=== PATIENT | male | born 1935 | race African-American/Black ===

== ENCOUNTER 2016-12-10 02:57 | Emergency (ER) | payer OTHER, MEDICARE ==
[~2016-12-10] VITALS: Ht 170.2 cm; Wt 70.0 kg
[~2016-12-10 02:57] MED LIST: AMLO10TA80; ASPI-986 PO; CARV12.545 PO; CLON0.2T; ECOTRIN; IRBE1TAB13 PO; LOVA40TA73; METF10002; PROT40 PO
[2016-12-10 04:22] LABS: BASOPHILS % 0.5 % (0.0-2.0); EOSINOPHILS % 3.5 % (0.0-5.0); HEMOGLOBIN. 11.3 g/dL (14.0-18.0); LYMPHOCYTES % 30.7 % (20.0-50.0); MEAN CORPUSCULAR HEMOGLOBIN 26.2 pg (28.0-32.0); MEAN CORPUSCULAR VOLUME 78.5 fL (80.0-94.0); MEAN PLATELET VOLUME 7.8 fl (7.4-10.4); NEUTROPHILS % 56.3 % (40.0-76.0); PLATELET 222 x1000/uL (130-400); RED BLOOD CELL COUNT 4.33 mill/uL (4.7-6.1); RED CELL DISTRIBUTION WIDTH 16.1 % (11.6-14.6)
[2016-12-10 04:25] LABS: INR 1.1; PROTHROMBIN TIME 11.4 sec
[2016-12-10 04:35] LABS: CARBON DIOXIDE 25 mEq/L (21-32); CHLORIDE 105 mEq/L (98-107); TROPONIN I < 0.02 ng/mL (0.00-0.04)
[2016-12-10 05:40] VITALS: BP 138/78
== END 2016-12-10 08:40 | disposition home or self-care (01) ==
LOC: ER 08:36
DX: R60.0 Localized edema (principal); I10 Essential (primary) hypertension; E11.9 Type 2 diabetes mellitus without complications; E89.0 Postprocedural hypothyroidism; Z86.718 Personal history of other venous thrombosis and embolism; Z79.01 Long term (current) use of anticoagulants
CPT/HCPCS: 36415; 71010; 80053; 83880; 84484; 85025; 85610; 93005; 93970; 99285

== ENCOUNTER 2019-04-14 07:43 | Emergency (ER) | payer MEDICARE, OTHER ==
[~2019-04-14] VITALS: Ht 165.1 cm; Wt 77.0 kg
[~2019-04-14 07:43] MED LIST changes: +METF-416; -METF10002
[2019-04-14 11:25] LABS: BASOPHILS % 1.2 % (0.0-2.0); HEMATOCRIT. 33.9 % (42.0-52.0); HEMOGLOBIN. 11.4 g/dL (14.0-18.0); LYMPHOCYTES % 24.6 % (20.0-50.0); MEAN CORPUSCULAR HEMOGLOBIN 26.6 pg (28.0-32.0); MEAN CORPUSCULAR VOLUME 78.9 fL (80.0-94.0); MEAN PLATELET VOLUME 7.3 fl (7.4-10.4); NEUTROPHILS % 63.2 % (40.0-76.0); PLATELET 385 x1000/uL (130-400); RED BLOOD CELL COUNT 4.29 mill/uL (4.7-6.1); RED CELL DISTRIBUTION WIDTH 15.2 % (11.6-14.6)
[2019-04-14 11:29] LABS: CHLORIDE 101 mEq/L (98-107)
[2019-04-14 11:30] LABS: INR 1.1; PROTHROMBIN TIME 11.3 sec (9.6-11.0)
[2019-04-14 12:49] LABS: CLARITY URINE CLEAR (CLEAR); COLOR URINE YELLOW (YELLOW); KETONES URINE NEGATIVE (NEGATIVE); LEUKOCYTE ESTERASE URINE NEGATIVE (NEGATIVE); NITRITE URINE NEGATIVE (NEGATIVE); OCCULT BLOOD URINE NEGATIVE (NEGATIVE); PH URINE 7.5 (4.5-8.0); PROTEIN URINE NEGATIVE (NEGATIVE); UROBILINOGEN URINE 0.2 E.U./dL (0.2-1.0)
[2019-04-14 13:46] VITALS: BP 127/68
== END 2019-04-14 13:49 | disposition home or self-care (01) ==
LOC: ER 07:43 → CANBEDREQ 04-15 00:07
DX: R53.1 Weakness (principal); I10 Essential (primary) hypertension; E11.9 Type 2 diabetes mellitus without complications; E78.00 Pure hypercholesterolemia, unspecified; N40.0 Benign prostatic hyperplasia without lower urinary tract symptoms; G62.9 Polyneuropathy, unspecified; M10.9 Gout, unspecified; Z79.82 Long term (current) use of aspirin; Z79.84 Long term (current) use of oral hypoglycemic drugs
CPT/HCPCS: 36415; 71045; 81003; 83605; 84145; 84484; 87804; 93005; 99284

== ENCOUNTER 2020-03-10 20:41 | Inpatient (IN) | payer OTHER ==
[~2020-03-10] VITALS: Ht 172.7 cm; Wt 80.1 kg
[2020-03-10 21:59] LABS: BASOPHILS % 0.5 % (0.0-2.0); EOSINOPHILS % 2.4 % (0.0-5.0); HEMATOCRIT. 33.5 % (42.0-52.0); HEMOGLOBIN. 11.3 g/dL (14.0-18.0); LYMPHOCYTES % 36.9 % (20.0-50.0); MEAN CORPUSCULAR HEMOGLOBIN 27.3 pg (28.0-32.0); MEAN CORPUSCULAR VOLUME 80.8 fL (80.0-94.0); MEAN PLATELET VOLUME 7.5 fl (7.4-10.4); MONOCYTES % 9.4 % (2.0-8.0); NEUTROPHILS % 50.8 % (40.0-76.0); PLATELET 214 x1000/uL (130-400); RED BLOOD CELL COUNT 4.14 mill/uL (4.7-6.1); RED CELL DISTRIBUTION WIDTH 15.6 % (11.6-14.6)
[2020-03-10 22:00] LABS: CHLORIDE 109 mEq/L (98-107)
[2020-03-10] MEDS ORDERED: SODIUM CHLORIDE 0.9% 500 ML IV ONE (22:00)
[2020-03-11] VITALS (9 sets, daily range): BP systolic 118–150; BP diastolic 53–79
[2020-03-11 00:20] LABS: CLARITY URINE CLEAR (CLEAR); COLOR URINE YELLOW (YELLOW); KETONES URINE NEGATIVE (NEGATIVE); LEUKOCYTE ESTERASE URINE NEGATIVE (NEGATIVE); NITRITE URINE NEGATIVE (NEGATIVE); OCCULT BLOOD URINE NEGATIVE (NEGATIVE); PH URINE 6.5 (4.5-8.0); PROTEIN URINE NEGATIVE (NEGATIVE); SPECIFIC GRAVITY URINE 1.014 (1.005-1.030)
[2020-03-11] MEDS ORDERED: DOCUSATE SODIUM 100MG CAPSULE PO PRN (07:30)
[2020-03-11] MEDS ORDERED: ACETAMINOPHEN 325MG TABLET PO PRN (07:30)
[2020-03-11] MEDS: CARVEDILOL 12.5MG TABLET PO SCH ×2 (07:50→08:54)
[2020-03-11] MEDS ORDERED: DEXTROSE 50% WATER 50ML SYRINGE IV PRN (08:15)
[2020-03-11] MEDS: ASPIRIN 325MG TABLET PO SCH (08:53)
[2020-03-11] MEDS: PANTOPRAZOLE 40MG DR TABLET PO SCH (08:54)
[2020-03-11] MEDS: LOSARTAN POTASSIUM 100 MG TABLET PO SCH (08:54)
[2020-03-11] MEDS: ENOXAPARIN 40MG/0.4ML SYR SUBCUT SCH (09:02)
[2020-03-11] MEDS: AMLODIPINE 10MG TABLET PO SCH (09:02)
[2020-03-11] MEDS ORDERED: METF-414 MT (09:32)
[2020-03-11] MEDS ORDERED: TAMS-11 PO (09:33)
[2020-03-11] MEDS ORDERED: COR25 PO (09:34)
[2020-03-11] MEDS ORDERED: ATOR40TA70 MT (09:34)
[2020-03-11] MEDS ORDERED: CLON0.1T PO (09:35)
[2020-03-11] MEDS: BLOOD SUGAR DIAGNOSTIC STRIP TEST SCH ×3 (12:20→20:51)
[2020-03-11] MEDS: INSULIN LISPRO 100 UNITS/ML SUBCUT SCH ×3 (12:50→20:51)
[2020-03-11] MEDS: DEXT 5%/0.45% NACL 1000ML 1,000 ML IV SCH (14:08)
[2020-03-11] MEDS: SODIUM CHLORIDE 0.9% INJ 3ML FLUSH IVF SCH ×2 (14:10→20:55)
[2020-03-11 16:51] LABS: LDL CHOLESTEROL 60 mg/dL (5-100)
[2020-03-11 16:52] LABS: HDL CHOLESTEROL 54 mg/dL (40-59)
[2020-03-11 16:53] LABS: T4 FREE 1.18 ng/dL (0.76-1.46)
[2020-03-11] MEDS ORDERED: ATORVASTATIN CALCIUM 20MG TABLET PO SCH (21:00)
[2020-03-12] VITALS: BP 136/62
[2020-03-12 04:21] VITALS: BP 121/53
[2020-03-12 05:35] LABS: CHLORIDE 108 mEq/L (98-107)
[2020-03-12] MEDS: SODIUM CHLORIDE 0.9% INJ 3ML FLUSH IVF SCH (05:59)
[2020-03-12 06:05] LABS: BASOPHILS % 0.7 % (0.0-2.0); EOSINOPHILS % 2.4 % (0.0-5.0); HEMATOCRIT. 35.4 % (42.0-52.0); LYMPHOCYTES % 34.8 % (20.0-50.0); MEAN CORPUSCULAR VOLUME 79.8 fL (80.0-94.0); MEAN PLATELET VOLUME 7.4 fl (7.4-10.4); NEUTROPHILS % 54.1 % (40.0-76.0); PLATELET 260 x1000/uL (130-400); RED BLOOD CELL COUNT 4.44 mill/uL (4.7-6.1); RED CELL DISTRIBUTION WIDTH 15.4 % (11.6-14.6)
[2020-03-12] MEDS: BLOOD SUGAR DIAGNOSTIC STRIP TEST SCH ×2 (06:20→12:30)
[2020-03-12] MEDS: INSULIN LISPRO 100 UNITS/ML SUBCUT SCH ×2 (07:36→12:35)
[2020-03-12] MEDS ORDERED: MAGNESIUM GLUCONATE 500MG TABLET PO NR (09:00)
[2020-03-12] MEDS: PANTOPRAZOLE 40MG DR TABLET PO SCH (09:00)
[2020-03-12] MEDS: LOSARTAN POTASSIUM 100 MG TABLET PO SCH (09:00)
[2020-03-12] MEDS: AMLODIPINE 10MG TABLET PO SCH (09:00)
[2020-03-12] MEDS: ASPIRIN 325MG TABLET PO SCH (09:00)
[2020-03-12] MEDS: ENOXAPARIN 40MG/0.4ML SYR SUBCUT SCH (09:01)
[2020-03-12] MEDS: DEXT 5%/0.45% NACL 1000ML 1,000 ML IV SCH (09:01)
[2020-03-12 09:38] VITALS: BP_SYST 156; BP_SYST 159; BP_DIAS 64; BP_DIAS 70
[2020-03-12 12:38] VITALS: BP 126/59
[2020-03-12 16:25] VITALS: BP 126/59
[2020-03-13] MEDS ORDERED: FAMOTIDINE 20MG TABLET PO SCH (09:00)
== END 2020-03-12 18:11 | disposition home or self-care (01) | DRG 73 ==
LOC: ER 20:41 → 6WST 03-11 02:46 → EDBEDREQTM 03-11 02:48 → EDBEDREQ 03-11 02:48 → EDBEDREQDT 03-11 02:48 → ENRESERV 03-11 05:12
PROVIDERS: ADMIT Ophthalmology; ATTEND Ophthalmology
DX: G90.8 Other disorders of autonomic nervous system (principal); N17.0 Acute kidney failure with tubular necrosis; E44.1 Mild protein-calorie malnutrition; E11.9 Type 2 diabetes mellitus without complications; E78.5 Hyperlipidemia, unspecified; E87.8 Other disorders of electrolyte and fluid balance, not elsewhere classified; I10 Essential (primary) hypertension; D64.9 Anemia, unspecified; R00.1 Bradycardia, unspecified; E89.0 Postprocedural hypothyroidism; Z82.49 Family history of ischemic heart disease and other diseases of the circulatory system; Z86.73 Personal history of transient ischemic attack (TIA), and cerebral infarction without residual deficits; Z68.26 Body mass index [BMI] 26.0-26.9, adult; Z79.899 Other long term (current) drug therapy
CPT/HCPCS: 36415; 71045; 80048; 80053; 80061; 81003; 82962; 83036; 83735; 83880; 84439; 84443; 84480; 84484; 85025; 93005; 93306; 93880; 97162; 97535; 99285; J1650; J1815; J7040

== ENCOUNTER 2022-02-22 03:37 | Emergency (ER) | payer OTHER ==
[~2022-02-22] VITALS: Ht 172.7 cm; Wt 75.0 kg
[~2022-02-22 03:37] MED LIST changes: -ASPI-986 PO; +ATOR40TA70 MT; -CARV12.545 PO; -CLON0.2T; -ECOTRIN; -LOVA40TA73; +METF-414 MT; -METF-416; -PROT40 PO; +TAMS-11 PO
[2022-02-22 04:28] LABS: BASOPHILS % 0.5 % (0.0-2.0); EOSINOPHILS % 3.7 % (0.0-5.0); HEMATOCRIT. 29.4 % (42.0-52.0); LYMPHOCYTES % 19.3 % (20.0-50.0); MEAN CORPUSCULAR HEMOGLOBIN 26.9 pg (28.0-32.0); MEAN CORPUSCULAR VOLUME 79.1 fL (80.0-94.0); MEAN PLATELET VOLUME 7.2 fl (7.4-10.4); MONOCYTES % 7.9 % (2.0-8.0); NEUTROPHILS % 68.6 % (40.0-76.0); PLATELET 278 x1000/uL (130-400); RED BLOOD CELL COUNT 3.71 mill/uL (4.7-6.1); RED CELL DISTRIBUTION WIDTH 16.5 % (11.6-14.6)
[2022-02-22 04:33] LABS: CHLORIDE 107 mEq/L (98-107)
[2022-02-22] MEDS ORDERED: POLY17PO3 MT (06:43)
[2022-02-22 07:00] VITALS: BP 145/54
[2022-02-22 07:08] LABS: CLARITY URINE CLEAR (CLEAR); COLOR URINE YELLOW (YELLOW); KETONES URINE NEGATIVE (NEGATIVE); LEUKOCYTE ESTERASE URINE NEGATIVE (NEGATIVE); NITRITE URINE NEGATIVE (NEGATIVE); OCCULT BLOOD URINE NEGATIVE (NEGATIVE); PROTEIN URINE NEGATIVE (NEGATIVE); SPECIFIC GRAVITY URINE 1.015 (1.005-1.030); UROBILINOGEN URINE 0.2 E.U./dL (0.2-1.0)
== END 2022-02-22 07:08 | disposition home or self-care (01) ==
LOC: ER 03:43
DX: K59.00 Constipation, unspecified (principal); E11.9 Type 2 diabetes mellitus without complications; I10 Essential (primary) hypertension
CPT/HCPCS: 36415; 74176; 80053; 81003; 83605; 85025; 99284